=== PATIENT | female | born 1995 | race Asian ===

== ENCOUNTER 2020-09-30 22:39 | Emergency (ER) | payer OTHER ==
[~2020-09-30] VITALS: Ht 172.7 cm; Wt 136.1 kg
[2020-10-01 00:01] VITALS: BP 139/76; TEMP 99.7
== END 2020-10-01 00:02 | disposition home or self-care (01) ==
LOC: ED 22:39
DX: N64.4 Mastodynia (principal); W26.8XXA Contact with other sharp object(s), not elsewhere classified, initial encounter; W45.8XXA Other foreign body or object entering through skin, initial encounter; Y92.89 Other specified places as the place of occurrence of the external cause
CPT/HCPCS: 99282